=== PATIENT | male | born 1960 | race Caucasian/White ===

== ENCOUNTER → 2019-03-16 | Outpatient (CLI) | payer BC ==
--- NOTE | 2019-03-16 11:23 | XR ---
EXAMINATION TYPE: XR orbit detect foreign body DATE OF EXAM: 03/16/2019 COMPARISON: NONE HISTORY: pre MRI orbit clearance TECHNIQUE: 3 views obtained FINDINGS: Orbits are intact with no diagnostic evidence of metallic foreign body IMPRESSION: No diagnostic evidence of radio metallic foreign body.
== END ==
LOC: RADXRMAIN 10:49
PROVIDERS: ATTEND Orthopaedic Surgery
DX: T15.92XA Foreign body on external eye, part unspecified, left eye, initial encounter (principal)
CPT/HCPCS: 70030

== ENCOUNTER → 2019-03-17 | Outpatient (CLI) | payer BC ==
--- NOTE | 2019-03-18 19:49 | MR ---
EXAMINATION TYPE: MR knee RT wo con DATE OF EXAM: 03/17/2019 COMPARISON: Outside right knee x-ray 8 days ago. HISTORY: Right knee pain per order. Pain for 1 year per patient. TECHNIQUE: Multiplanar, multisequence images of the knee is performed without IV contrast. FINDINGS: MEDIAL MENISCUS: Anterior horn is intact without tear. Posterior horn shows horizontal and oblique in creased signal extending to inferior articular surface which is frayed sagittal image 8. Double PCL s ign is seen. Medial extrusion of medial meniscus as seen on coronal images. LATERAL MENISCUS: Anterior and posterior horns are intact without tear. CRUCIATE LIGAMENTS: The anterior and posterior cruciate ligaments are intact and unremarkable. COLLATERAL LIGAMENTS: The medial collateral ligament and lateral collateral ligament complex are inta ct and unremarkable. EXTENSOR MECHANISM: Visualized quadriceps and patellar tendons are intact. EFFUSION: No significant suprapatellar joint effusion. POPLITEAL CYST: Popliteal fossa shows ill-defined fluid extending inferiorly consistent with ruptured cyst. TRICOMPARTMENT SPACES: There is mild to moderate tricompartment joint space loss with mild spurring. CARTILAGE: Some thinning of articular cartilage medial tibiofemoral compartment is present. No signif icant chondromalacia patella is seen. BONE MARROW SIGNAL: No focal abnormal marrow signal is appreciated. OTHER: No additional significant abnormality is appreciated. IMPRESSION: 1. Complex full-thickness tear of posterior horn of medial meniscus with displaced meniscal fragment. 2. Moderate-sized leaking Morin's cyst. 3. Mild to moderate tricompartment degenerative changes presumed on basis of osteoarthritis.
== END ==
LOC: RADMRIMAIN 08:58
PROVIDERS: ATTEND Orthopaedic Surgery
DX: S83.241A Other tear of medial meniscus, current injury, right knee, initial encounter (principal); M71.21 Synovial cyst of popliteal space [Baker], right knee; M17.11 Unilateral primary osteoarthritis, right knee

== ENCOUNTER → 2019-04-27 | Outpatient (CLI) | payer BC ==
--- NOTE | 2019-04-27 10:50 | US ---
EXAMINATION TYPE: US scrotum with doppler. Grayscale and color Doppler Duplex imaging performed of t he scrotum. DATE OF EXAM: 04/27/2019 COMPARISON: NONE CLINICAL HISTORY: N43.3 R EPIDIDYMAL CYST, N50.3 HYDROCELE. Right testicle swelling, pt states histor y of hydrocele drained on right side years ago EXAM MEASUREMENTS: TESTICLES: Right Testicle: 4.8 x 2.5 x 2.8 cm Left Testicle: 4.2 x 2.2 x 3.0 cm EPIDIDYMIS HEAD: Left Epididymis: 1.6 cm Right epididymis is not well visualized given mass effect by the large right hydrocele Doppler performed to assess for testicular vascularity; good bilateral color flow and waveforms are s een. There is no evidence of testicular torsion. Presence of hydroceles: Large anechoic hydrocele mostly superior/lateral to right testicle measuring up to 9.3 x 6.1 x 8.8 cm Presence of varicoceles: No IMPRESSION: Large recurrent right hydrocele with mass effect on the right testicle in this patient wi th a previously drained hydrocele.
== END | disposition home or self-care (01) ==
LOC: RADUSWWP 09:34
PROVIDERS: ATTEND Urology
DX: N43.3 Hydrocele, unspecified (principal); N50.3 Cyst of epididymis
CPT/HCPCS: 76870; 93975

== ENCOUNTER → 2019-05-07 | Outpatient (CLI) | payer BC ==
[2019-05-07 10:14] LABS: Basophils # (A) 0.1 k/uL (0-0.2); Basophils % (A) 1 %; Eosinophils # (A) 0.3 k/uL (0-0.7); Eosinophils % (A) 5 %; HCT 46.1 % (39.0-53.0); Lymphocytes # (A) 1.9 k/uL (1.0-4.8); Lymphocytes % (A) 28 %; MCH 27.3 pg (25.0-35.0); MCHC 32.5 g/dL (31.0-37.0); MCV 83.9 fL (80.0-100.0); Mean Platelet Volume 9.3; Monocytes # (A) 0.5 k/uL (0-1.0); Monocytes % (A) 7 %; Neutrophils # (A) 3.9 k/uL (1.3-7.7); Neutrophils % (A) 57 %; Platelet Count 143 k/uL (150-450); RBC 5.49 m/uL (4.30-5.90); WBC 6.9 k/uL (3.8-10.6)
== END | disposition home or self-care (01) ==
LOC: LABPAT 09:34
PROVIDERS: ATTEND Orthopaedic Surgery
DX: Z01.810 Encounter for preprocedural cardiovascular examination (principal); Z01.812 Encounter for preprocedural laboratory examination; M23.91 Unspecified internal derangement of right knee
CPT/HCPCS: 36415; 80051; 85025; 93005

== ENCOUNTER 2019-05-16 07:25 | Day surgery (SDC) | payer BC ==
--- NOTE | 2019-05-15 10:10 | HP ---
HISTORY AND PHYSICAL Surgery is scheduled for 05/16/2019. Ward Pat is a 58-year-old patient seen with progressive right knee pain. We discussed options for treatment. He elected to proceed with right knee arthroscopy. Consent was obtained. PAST MEDICAL HISTORY: His past medical history is hypertension, hyperlipidemia. PAST SURGICAL HISTORY: Noncontributory. DAILY MEDICATIONS: 1. Aspirin. 2. Atorvastatin. 3. Lisinopril. 4. Motrin. ALLERGIES: None. SOCIAL HISTORY: Denies current tobacco use. PHYSICAL EXAMINATION: Physical evaluation of the right knee: His range of motion 0 to 130 degrees. Mild effusion. Tenderness medial joint line. Positive medial Anne-Marie's. Ligaments stable. Hip rotation without pain. Distal neurovascular exam is intact. Right knee radiographs reveal mild osteoarthritic changes. A right knee MRI revealed medial meniscal tear. IMPRESSION: 1. Internal derangement right knee with medial meniscal tear. 2. Hypertension. 3. Hyperlipidemia. PLAN: Right knee arthroscopy with partial meniscectomy and debridement. MMODL / IJN: [id number] /
[2019-05-15 10:18] VITALS: BMI 39.1
[~2019-05-16 07:25] MED LIST: HYDROmorphone 0.5 MG/0.5 ML SYRINGE IVP PRN; LACTATED RINGERS 1,000 ML IV SCH; LIDOCAINE 1% 20 ML VIAL (10MG/ML) FOR IV START INTRADERMA PRN; ONDANSETRON 4 MG/2 ML VIAL IVP ONE; ceFAZolin IN SWFI 2 GM/20 ML SYRINGE IVP ONE
[2019-05-16] MEDS ORDERED: BUPIVACAINE (PF) 0.5% 30 ML VIAL INTRAARTIC ONE (08:34)
[2019-05-16] MEDS ORDERED: MIDAZOLAM 2 MG/2 ML VIAL ONE (08:40)
[2019-05-16] MEDS ORDERED: SUCCINYLCHOLINE CHLORIDE 100 MG/5 ML SYR IV ONE (08:40)
[2019-05-16] MEDS ORDERED: PROPOFOL 10 MG/ML 20 ML VIAL IV ONE (08:40)
[2019-05-16] MEDS ORDERED: LIDOCAINE 1% INJ 10MG/ML (20 ML MDV) ONE (08:40)
[2019-05-16] MEDS ORDERED: fentaNYL (PF) 50 MCG/ML 2 ML AMP ONE (08:40)
--- NOTE | 2019-05-16 09:36 | P.OP ---
Date of Procedure: 05/16/19 Preoperative Diagnosis: Internal derangement right knee Postoperative Diagnosis: 1. Tear medial meniscus right knee 2. Grade 2 chondromalacia patella right knee 3. Reactive synovitis medial, lateral and suprapatellar compartments right knee Procedure(s) Performed: 1. Arthroscopic partial medial meniscectomy right knee 2. Arthroscopic chondroplasty patella right knee 3. Arthroscopic partial synovectomy medial, lateral and suprapatellar compartments right knee Anesthesia: NOLVIAA, local Surgeon: Lawrence Goddard Estimated Blood Loss (ml): 5 Pathology: none sent Condition: stable Disposition: PACU Indications for Procedure: 58-year-old patient seen with progressive right knee pain. After treatment options were discussed, he elected to proceed with arthroscopy Operative Findings: see description of procedure Description of Procedure: Patient was taken to the operative suite. Patient underwent a general anesthetic by the department of anesthesia. Patient was given preoperative antibiotics. The right lower extremity was placed in a well-padded arthroscopic leg pizano. The right leg was prepped and draped in the normal sterile orthopedic fashion. A lateral parapatellar and suprapatellar incision was made. Trochars were inserted. Arthroscopy was initiated. Suprapatellar pouch revealed diffuse thick reactive synovitis. The patellofemoral joint appeared to articulate congruently. There was grade 2 chondromalacia of the patella with some osteochondral tears present. The scope was guided into the medial gutter. No loose bodies or plica were identified. The scope was then guided into the medial compartment. A medial parapatellar incision was made. Trocar inserted followed by probe. There was a complex tear involving the posterior horn and midbody medial meniscus. There were grade 1 chondromalacia changes of the medial femoral condyle with no osteochondral tears present. There was thick reactive synovitis anteriorly. I performed a partial medial meniscectomy gained down to stable meniscal tissue. I performed a partial synovectomy decompressing the reactive synovitis anteriorly. The residual meniscus was stable. There was good decompression of synovitis. Scope and probe were then guided into the intercondylar notch. Cruciates were identified, probed and found to be stable. The scope and probe were then guided into lateral compartment. The lateral meniscus was probed and found to be stable. There was reactive synovitis anteriorly. There was no chondromalacia present. I performed a partial synovectomy decompressing the reactive synovitis. There was good decompression of synovitis. The scope was in guided back into the suprapatellar compartment. In addition motorize shaver into the super compartment. I debrided some piecemeal fragments of meniscus I encountered. I performed a chondroplasty the patella. I performed a partial synovectomy decompressing the reactive synovitis. Shaver was removed. I took one more look on the entire knee, no residual debris. Instruments were now removed from the joint. The joint was infiltrated with .25% Marcaine. Steri-Strips were applied to the portal sites. Sterile dressings were applied. The patient was placed into a SHAGUFTA hose. No tourniquet was utilized. The patient was awakened, transferred to a bed and taken to recovery stable satisfactory condition.
[2019-05-16 09:41] VITALS: TEMP 97.5
[2019-05-16] MEDS ORDERED: LACTATED RINGERS 1,000 ML IV ONE (09:54)
[2019-05-16 11:38] VITALS: BP 124/79; PULSE 65; RESP 18
== END 2019-05-16 11:52 | disposition home or self-care (01) ==
LOC: OR 07:25
PROVIDERS: ATTEND Orthopaedic Surgery
DX: S83.231A Complex tear of medial meniscus, current injury, right knee, initial encounter (principal); M65.9 Synovitis and tenosynovitis, unspecified; M22.41 Chondromalacia patellae, right knee; G47.33 Obstructive sleep apnea (adult) (pediatric); I10 Essential (primary) hypertension; E78.5 Hyperlipidemia, unspecified; Z79.82 Long term (current) use of aspirin; Z79.899 Other long term (current) drug therapy; Z79.1 Long term (current) use of non-steroidal anti-inflammatories (NSAID); X58.XXXA Exposure to other specified factors, initial encounter; Z98.890 Other specified postprocedural states
CPT/HCPCS: 29881; 29876; J2250; J2405; J2001; J3010; J0330; J2704; J1170; J0690

== ENCOUNTER → 2019-05-25 | Outpatient (CLI) | payer BC | END | disposition home or self-care (01) | LOC: LABWHC1 09:02 | PROVIDERS: ATTEND Nurse Practitioner Adult Health | DX: Z53.9 Procedure and treatment not carried out, unspecified reason (principal) ==

== ENCOUNTER → 2019-10-12 | Outpatient (CLI) | payer BC ==
--- NOTE | 2019-10-12 12:50 | ECHOS ---
STRESS ECHOCARDIOGRAM INDICATIONS: Dyspnea. MEDICATIONS: Lisinopril, atorvastatin, aspirin. BASELINE HEART RATE: 68 BASELINE BLOOD PRESSURE: 123/45 MAXIMUM HEART RATE: 140 MAXIMUM BLOOD PRESSURE: 176/96 85% MPHR: 138 100% MPHR: 162 METS: 10.1 MAXIMUM STAGE REACHED: 3 TOTAL EXERCISE TIME: 9:00 CLINICAL INFORMATION: Baseline EKG shows sinus rhythm, normal axis, normal intervals. Patient exercised on Paramjit protocol for a total of 9 minutes achieving 10 METS, 85% of predicted maximum heart rate without chest pain or diagnostic ST-segment depression. Baseline echo shows normal left ventricular size wall motion systolic function. Postexercise there is normal hyperdynamic response of all segments of myocardium noted. MMODL / IJN: [id number] /
== END ==
LOC: RADNMMAIN 09:44
PROVIDERS: ATTEND Family Medicine
DX: R06.00 Dyspnea, unspecified (principal)
CPT/HCPCS: 93351

== ENCOUNTER → 2020-05-09 | Outpatient (CLI) | payer BC ==
--- NOTE | 2020-05-09 08:12 | US ---
EXAMINATION TYPE: US liver DATE OF EXAM: 05/09/2020 COMPARISON: Outside CT is not submitted for correlation. CLINICAL HISTORY: K76.89 DISEASE OF LIVER. lesion noted on outside CT, no symptoms EXAM MEASUREMENTS: Liver Length: 13.9 cm Gallbladder Wall: 0.2 cm CBD: 0.5 cm Right Kidney: 12.7 x 5.0 x 5.5 cm Pancreas: wnl in its visualized portions Liver: 1.6cm septated cystic lesion noted in posterior right lobe, otherwise wnl. There is increased through transmission consistent with cyst Gallbladder: wnl Evidence for sonographic Badillo's sign: no CBD: wnl Right Kidney: wnl IMPRESSION: Some limited visualization of the pancreas. Probable septated cyst within the liver, foll ow-up could be performed to assess for stability, no comparisons submitted.
== END | disposition home or self-care (01) ==
LOC: RADUSWWP 07:17
PROVIDERS: ATTEND Family Medicine
DX: K76.89 Other specified diseases of liver (principal)
CPT/HCPCS: 76705

== ENCOUNTER → 2021-05-22 | Outpatient (CLI) | payer BC ==
[2021-05-22 11:30] LABS: African American GFR (CKD) >90 (>60 ml/min/1.73 sqM); Blood Urea Nitrogen 14 mg/dL (9-20); Non-African American GFR(CKD) >90 (>60 ml/min/1.73 sqM)
== END | disposition home or self-care (01) ==
LOC: LABWHC1 10:42
PROVIDERS: ATTEND Radiology Diagnostic Radiology
DX: Z01.812 Encounter for preprocedural laboratory examination (principal)
CPT/HCPCS: 36415; 82565; 84520

== ENCOUNTER → 2023-02-22 | Outpatient (CLI) | payer BC ==
[2023-02-22 17:05] LABS: Basophils # (A) 0.1 k/uL (0-0.2); Basophils % (A) 1 %; Eosinophils # (A) 0.2 k/uL (0-0.7); Eosinophils % (A) 3 %; HCT 44.2 % (39.0-53.0); HGB 14.4 gm/dL (13.0-17.5); Lymphocytes # (A) 1.5 k/uL (1.0-4.8); Lymphocytes % (A) 22 %; MCH 27.3 pg (25.0-35.0); MCHC 32.6 g/dL (31.0-37.0); MCV 83.9 fL (80.0-100.0); Mean Platelet Volume 9.9; Monocytes # (A) 0.4 k/uL (0-1.0); Monocytes % (A) 6 %; Neutrophils # (A) 4.5 k/uL (1.3-7.7); Neutrophils % (A) 66 %; Platelet Count 123 k/uL (150-450); RBC 5.27 m/uL (4.30-5.90); RDW 13.6 % (11.5-15.5); WBC 6.7 k/uL (3.8-10.6)
--- NOTE | 2023-02-22 17:27 | US ---
EXAMINATION TYPE: US venous doppler duplex LE RT DATE OF EXAM: 02/22/2023 5:14 PM COMPARISON: NONE CLINICAL INDICATION: Male, 62 years old with history of R60.0 LOCALIZED EDEMA; Edema. No hx of DVT. P atient takes baby aspirin. SIDE PERFORMED: Right TECHNIQUE: The lower extremity deep venous system is examined utilizing real time linear array sonog jill with graded compression, doppler sonography and color-flow sonography. VESSELS IMAGED: Common Femoral Vein Deep Femoral Vein Greater Saphenous Vein * Femoral Vein Popliteal Vein Small Saphenous Vein * Proximal Calf Veins (* superficial vessels) Right Leg: No evidence of DVT. Duplicate popliteal vein noted. Scanned patient's area of concern wit hin right lateral calf, no abnormalities seen at this time. IMPRESSION: No deep venous thrombosis within the right lower extremity. No ultrasound evidence of abnormality in the patient's right lateral calf.
[2023-02-23 09:22] LABS: African American GFR (CKD) 93.1 (60.0-200.0); Albumin 4.2 g/dL (3.8-4.9); Albumin/Globulin Ratio 1.5 (1.60-3.17); Anion Gap 8.9 mmol/L (10.00-18.00); BUN/Creat Ratio 10.1 Ratio (12.00-20.00); Blood Urea Nitrogen 10.1 mg/dL (9.0-27.0); Calcium 9.1 mg/dL (8.7-10.3); Carbon Dioxide 25.1 mmol/L (20.0-27.5); Globulin 2.8 g/dL (1.6-3.3); Non-African American GFR(CKD) 80.3 (60.0-200.0); Potassium 4.4 mmol/L (3.5-5.5); T4, Free (Free Thyroxine) 1.2 ng/dL (0.800-1.800); Total Bilirubin 0.7 mg/dL (0.30-1.20)
== END | disposition home or self-care (01) ==
LOC: RADUSWWP 16:24
PROVIDERS: ATTEND Family Medicine
DX: Z12.5 Encounter for screening for malignant neoplasm of prostate (principal); I10 Essential (primary) hypertension; R60.0 Localized edema
CPT/HCPCS: 80053; 83880; 84153; 84439; 84443; 85025

== ENCOUNTER → 2024-12-06 | Outpatient (CLI) | payer BC | LOC: CPPFTMAIN 16:40 | PROVIDERS: ATTEND Internal Medicine Critical Care Medicine | DX: J44.9 Chronic obstructive pulmonary disease, unspecified (principal) | CPT/HCPCS: 94060; 94726; 94729 ==